=== PATIENT | female | born 1995 | race Two or more races ===

== ENCOUNTER 2024-06-07 13:51 | Inpatient (IN) | payer MEDICAID, OTHER ==
[~2024-06-07] VITALS: Ht 160 cm; Wt 90.0 kg
[2024-06-07 14:32] LABS: Basophils # (auto) 0.1 10 ^3/uL (0-0.2); Basophils % (auto) 0.9 % (0.0-2.0); Eosinophils # (auto) 0.1 10 ^3/uL (0-0.8); Hematocrit 18.4 % (36.0-46.0); Lymphocytes # (auto) 3.5 10 ^3/uL (0.4-5.4); Neutrophils # (auto) 10.5 10 ^3/uL (1.6-8.6); White Blood Cell 15.3 10^3/uL (4.4-10.8)
[2024-06-07 14:34] LABS: Eosinophils % (auto) 0.7 % (0.0-7.0); Mean Corpuscular Hemoglobin 14.4 pg (28.0-32.0); Mean Corpuscular Hgb Conc. 27.1 g/dL (32.0-36.0); Mean Corpuscular Volume 53.2 fL (80.0-100.0); Monocytes % (auto) 6.3 % (0.0-12.0); Neutrophils % (auto) 69.1 % (37.0-80.0); Nucleated Red Blood Cells % 0.1 %; Platelet Count (auto) 371 10^3/uL (140-450); Red Blood Cells 3.46 10^6/uL (4.0-5.20)
[2024-06-07 14:36] LABS: Red Cell Distribution Width 20.9 % (11.8-14.3)
[2024-06-07] MEDS: SODIUM CHLORIDE 0.9% 1,000 ML IV ONE ×3 (14:43→18:48)
[2024-06-07 14:53] LABS: Chloride 104 mmol/L (98-107); Potassium 4.4 mmol/L (3.5-5.1); Sodium 136 mmol/L (136-145)
[2024-06-07 14:54] LABS: Anion Gap 9 (5-15); Calcium 9.3 mg/dL (8.7-10.4); Carbon Dioxide 23 mmol/L (20-31)
--- NOTE | 2024-06-07 14:54 | ED.PDOC ---
History of Present Illness HPI Comments 29 y/o obese F presents with relative for syncope, today. Per relative, patient was attending a [facility] appointment when she, suddenly became pale and had a witnessed syncopal episode with fall at around 1330, this evening. At time of assessment, patient, now, only complains of a 3/10 and endorses on being sick prior with a cough and fever, lately. Patient has no reported trauma, injuries, incontinence, deficits, or other associated symptoms at this time. Chief Complaint: Dizziness Time Seen by MD: 13:55 Reviewed Notes: Nurses Notes, Medications, Allergies Allergies: Coded Allergies: NO KNOWN ALLERGIES (Unverified , 06/07/24) Information Source: Relative Mode of Arrival: Ambulatory Severity: Moderate Timing: Hours Duration: Since onset Prehospital treatment: None Past Medical History Past Medical History (Other): obese Surgical History: Denies all surgeries PRODUCE DEPARTMENT SUPERVISOR History: No Pertinent PRODUCE DEPARTMENT SUPERVISOR History Family History Family History: Unknown Social History Smoker: Non-Smoker Alcohol: Denies ETOH Use Drugs: Denies Drug Use Lives In: Home All Other Systems: Reviewed and Negative (Comprehensive systems review obtained and negative except for what is stated in the HPI.) Physical Exam General Appearance: Moderate Distress HEENT: Normal ENT Inspection, Pharynx Normal, TMs Normal Neck: Full Range of Motion, Non-Tender, Normal, Normal Inspection Respiratory: Chest Non-Tender, Lungs Clear, No Accessory Muscle Use, No Respiratory Distress, Normal Breath Sounds Cardiovascular: No Edema, No JVD, No Murmur, No Gallop, Normal Peripheral Pulses, Tachycardia Breast Exam: Deferred Gastrointestinal: No Organomegaly, Non Tender, No Pulsatile Mass, Normal Bowel Sounds, Soft Genitalia: Deferred Pelvic: Deferred Rectal: Deferred Extremities: No calf tenderness, Normal capillary refill, Normal inspection, Normal range of motion, Non-tender, No pedal edema Musculoskeletal : Apperance: Normal Neurologic: Alert, No Motor Deficits, No Sensory Deficits, Speech Problem (Old symptom) Cerebellar Function: NOT DONE Reflexes: NOT DONE Skin: Pallor Peripheral Pulses: 3+ Radial (R), 3+ Radial (L) Lymphatic: No Adenopathy Was a procedure done? Was a procedure done?: No Differential Dx Considerations may include: vasovagal response, dehydration, electrolyte imbalance, viral syndrome, URI, UTI, among others X-Ray, Labs, Meds, VS Vital Signs Date Time Temp Pulse Resp B/P (MAP) Pulse Ox O2 Delivery O2 Flow Rate FiO2 06/07/24 14:10 109 18 125/67 (86) 97 06/07/24 14:04 98.1 104 18 112/59 (76) 100 98.1 Lab Test 06/07/24 14:20 Range/Units White Blood Count 15.3 H 4.4-10.8 10^3/uL Red Blood Count 3.46 L 4.0-5.20 10^6/uL Hemoglobin 5.0 *L 12.2-16.2 g/dL Hematocrit 18.4 L 36.0-46.0 % Mean Corpuscular Volume 53.2 L 80.0-100.0 fL Mean Corpuscular Hemoglobin 14.4 L 28.0-32.0 pg Mean Corpuscular Hemoglobin Concent 27.1 L 32.0-36.0 g/dL Red Cell Distribution Width 20.9 H 11.8-14.3 % Platelet Count 371 140-450 10^3/uL Mean Platelet Volume 8.3 6.9-10.8 fL Neutrophils (%) (Auto) 69.1 37.0-80.0 % Lymphocytes (%) (Auto) 23.0 10.0-50.0 % Monocytes (%) (Auto) 6.3 0.0-12.0 % Eosinophils (%) (Auto) 0.7 0.0-7.0 % Basophils (%) (Auto) 0.9 0.0-2.0 % Neutrophils # (Auto) 10.5 H 1.6-8.6 10 ^3/uL Lymphocytes # (Auto) 3.5 0.4-5.4 10 ^3/uL Monocytes # (Auto) 1.0 0-1.3 10 ^3/uL Eosinophils # (Auto) 0.1 0-0.8 10 ^3/uL Basophils # (Auto) 0.1 0-0.2 10 ^3/uL Nucleated Red Blood Cells 0.1 % Sodium Level 136 136-145 mmol/L Potassium Level 4.4 3.5-5.1 mmol/L Chloride Level 104 98-107 mmol/L Carbon Dioxide Level 23 20-31 mmol/L Anion Gap 9 5-15 Blood Urea Nitrogen 9 9-23 mg/dL Creatinine 0.70 0.550-1.02 mg/dL Glomerular Filtration Rate Calc 119 >90 mL/min BUN/Creatinine Ratio 12.9 10.0-20.0 Serum Glucose 164 H 74-106 mg/dL Calcium Level 9.3 8.7-10.4 mg/dL Current Medications Medications (Trade) Dose Ordered Sig/Eulalia Route Start Time Stop Time Status Last Admin Sodium Chloride 1,000 ml @ 1,000 mls/hr Q1H ONCE IV 06/07/24 14:15 06/07/24 15:14 06/07/24 14:43 Patient alert. Problem with the speech. Possible MR. She is pale. Unable to express herself. No new symptom. Possible syncope. Possible anemia. Denies any bleeding. Establish intravenous access. Was given fluids. Hemoglobin is low. Blood transfusion. WBC elevated. Sepsis from unknown cause. Possible pneumonitis. Was given Rocephin. Was given azithromycin. Reviewed her history. Explained to the family. Continue monitoring. Time of 1ST Reevaluation: 14:25 Reevaluation 1ST: Unchanged Patient Education/Counseling: Diagnosis, Treatment Family Education/Counseling: Diagnosis, Treatment Additional Information Previous medical encounters reviewed: n/a The following tests were ordered, and results were reviewed by me: BMP, UA, CBC Additional Information was gathered from interviewing the following independent historians: family I reviewed and agreed with the following test results read by other providers: n/a I discussed treatment and results with medical personnel and: Patient Departure 1 Departure Time of Disposition: 15:04 Impression: Primary Impression: Sepsis, unspecified organism Qualified Codes: A41.9 - Sepsis, unspecified organism Additional Impression: Severe anemia Disposition: ADMITTED INPATIENT Admit to: Med Surg Condition: Guarded Critical Care Note Critical Care Time?: Yes (90 min-critical care time only) Critical care comment: Severe anemia pale anxious Stability Stability form required: No Heart Score Heart Score: Heart Score Response (Comments) Value History N/A 0 EKG N/A 0 Age N/A 0 Risk Factors N/A 0 Troponin N/A 0 Total 0 I personally scribed for ELLIS GELLER MD ([email or web address]) on 06/07/24 at 14:54. Electronically submitted by Enrrique Cardona ([email or web address]). ELLIS GELLER MD Jun 07, 2024 14:54
[2024-06-07 14:59] LABS: BUN/Creatinine Ratio 12.9 (10.0-20.0)
[2024-06-07 15:05] LABS: Blood Urea Nitrogen 9 mg/dL (9-23); Glucose 164 mg/dL (74-106)
--- NOTE | 2024-06-07 15:36 | DVH ---
EXAM: CT HEAD WITHOUT CONTRAST INDICATION: syncope TECHNIQUE: CT of the head without intravenous contrast. Radiation Dose Information: CT Dose: CTDI volume is 60.19 mGy. Dose-length product is 1186.14 mGy*cm The dose indicators for CT are the volume Computed Tomography (CT) Dose Index (CTDIvol) and the Dose Length Product (DLP), and are measured in units of mGy and mGy-cm, respectively. These indicators are not patient dose, but values generated from the CT scanner acquisition factors. The report includes radiation exposure data for exposures received during this examination. COMPARISON: None FINDINGS: There is no evidence of acute intracranial hemorrhage, extra-axial collection, mass effect, midline s hift, herniation or hydrocephalus. The ventricles, sulci and cisterns are age appropriate. The parker-white differentiation is intact. Patchy periventricular and subcortical white matter hypoattenuation is nonspecific but may be related to small vessel ischemic disease. The visualized paranasal sinuses and mastoid air cells are clear. The surrounding soft tissues and osseous structures are unremarkable. IMPRESSION: No acute intracranial abnormality. Diffuse cerebral atrophy with commensurate prominence of the ventricles and sulci
--- NOTE | 2024-06-07 15:38 | DVH ---
EXAM: XY CHEST PORTABLE Indication: sob Technique: Single frontal view of the chest was obtained Comparison: None FINDINGS: Lines and Tubes: None Lungs: No focal consolidation. Pleura: No effusion. No pneumothorax. Cardiomediastinal contours: Unremarkable Bones: No acute osseous abnormality. IMPRESSION: No acute cardiopulmonary disease.
[2024-06-07] MEDS: cefTRIAXone 1GM/50ML D5W 50 ML IV ONE (16:13)
[2024-06-07] MEDS: AZITHROMYCIN 500MG/ 250ML 250 ML IV ONE (17:10)
[2024-06-07 20:48] VITALS: PULSE 93; RESP 22; O2SAT 100
[2024-06-07 20:52] VITALS: BP 111/65; PULSE 105; RESP 17; TEMP 98.4
[2024-06-07 21:31] VITALS: BP 120/77; PULSE 100; RESP 16; TEMP 98.4
[2024-06-07 21:55] LABS: Urine Bacteria None Seen /hpf (None Seen)
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
[2024-06-07] MEDS ORDERED: ONDANSETRON HCL 4 MG/2 ML VIAL IV PRN (22:00)
[2024-06-07] MEDS ORDERED: MORPHINE SULFATE INJ 2 MG/ml SYRG IV PRN (22:00)
[2024-06-07 22:09] LABS: Urine Blood 2+ /uL (Negative); Urine Clarity Clear (Clear); Urine Color Colorless (Yellow); Urine Protein, UAD Negative (Negative); Urine Specific Gravity 1.008 (1.001-1.035); Urine Squamous Epithelial Cell FEW /hpf (<5); Urine Urobilinogen Normal (Negative)
[2024-06-07] MEDS: guaiFENesin-DM 100/10mg/5ml SYR PO ONE (22:15)
[2024-06-07] MEDS: SODIUM CHLORIDE 0.9% 1,000 ML IV SCH (22:15)
[2024-06-07] MEDS ORDERED: guaiFENesin-DM 100/10mg/5ml SYR PO PRN (22:15)
[2024-06-07 23:01] LABS: % Iron Saturation 2.3 % (15-50)
[2024-06-07 23:02] LABS: INR 1.08 (0.9-1.15); Partial Thromboplastin Time < 20.0 SEC (24.5-34.5); Prothrombin Time 11.4 sec (9.3-11.8)
[2024-06-07 23:09] LABS: Albumin 4.7 g/dL (3.2-4.8); Bilirubin, Direct 0.1 mg/dL (<0.3); Total Protein 7.6 g/dL (5.7-8.2)
[2024-06-07 23:10] LABS: Bilirubin, Total 0.4 mg/dL (0.2-1.0)
[2024-06-07 23:23] VITALS: BP 115/67; PULSE 99; RESP 26; TEMP 98.9
--- NOTE | 2024-06-07 23:27 | DVH ---
INDICATION: Metrorrhagia TECHNIQUE: Multiple real-time grayscale transabdominal sonographic images along with color and duplex Doppler of the uterus and ovaries were obtained. COMPARISON: None FINDINGS: Uterus is anteverted. Uterus measures 8.75 x 5.8 x 8.35 cm. Bladder is unremarkable. Left ovary measures 2.5 x 2 x 2.45 cm right ovary not seen. There is no flu id in the cul-de-sac. IMPRESSION: 1. Generally unremarkable study. I would recommended for this patient MRI examination of the pelvis zeus [email or web address] can not cooperate
[2024-06-07 23:46] VITALS: BP 116/65; PULSE 95; RESP 25; TEMP 98.9
[2024-06-07 23:58] LABS: Amphetamine Screen, Urine Neg (NEGATIVE); Barbiturate Scree,Urine Neg (NEGATIVE); Benzodiazephine Screen, Urine Neg (NEGATIVE); Cocaine Screen, Urine Neg (NEGATIVE); Opiate Scree,Urine Neg (NEGATIVE); Phencyclidine Screen, Urine Neg (NEGATIVE)
[2024-06-07 23:59] LABS: Cannabinoid Screen, Urine Neg (NEGATIVE)
[2024-06-08] VITALS (16 sets, daily range): BP systolic 110–137; BP diastolic 65–90; PULSE 76–96; RESP 16–26; TEMP 98–98.9; O2SAT 95–100
[2024-06-08] MEDS: PANTOPRAZOLE 40 MG/10 ML VIAL INJ IV ONE (01:43)
[2024-06-08] MEDS: AZITHROMYCIN 500MG/ 250ML 250 ML IV ONE (01:44)
[2024-06-08 01:53] LABS: Phosphorus 2.6 mg/dL (2.4-5.1)
[2024-06-08 05:45] LABS: Basophils # (auto) 0 10 ^3/uL (0-0.2); Basophils % (auto) 0.2 % (0.0-2.0); Eosinophils # (auto) 0.1 10 ^3/uL (0-0.8); Eosinophils % (auto) 0.9 % (0.0-7.0); Hematocrit 22.1 % (36.0-46.0); Lymphocytes # (auto) 5.1 10 ^3/uL (0.4-5.4); Lymphocytes % (auto) 35.4 % (10.0-50.0); Mean Corpuscular Hemoglobin 18.7 pg (28.0-32.0); Mean Corpuscular Volume 62.2 fL (80.0-100.0); Monocytes % (auto) 7.1 % (0.0-12.0); Neutrophils # (auto) 8.2 10 ^3/uL (1.6-8.6); Neutrophils % (auto) 56.4 % (37.0-80.0); Nucleated Red Blood Cells % 0.1 %; Platelet Count (auto) 286 10^3/uL (140-450); Red Blood Cells 3.55 10^6/uL (4.0-5.20); White Blood Cell 14.5 10^3/uL (4.4-10.8)
[2024-06-08 05:49] LABS: Hemoglobin 6.6 g/dL (12.2-16.2)
[2024-06-08 06:18] LABS: Alanine Aminotransferase 11 U/L (7-40); Albumin 4.1 g/dL (3.2-4.8); Alkaline Phosphatase 53 U/L (46-116); Anion Gap 9 (5-15); BUN/Creatinine Ratio 9.2 (10.0-20.0); Calcium 8.8 mg/dL (8.7-10.4); Carbon Dioxide 21 mmol/L (20-31); Potassium 3.7 mmol/L (3.5-5.1); Sodium 138 mmol/L (136-145); Total Protein 6.9 g/dL (5.7-8.2)
[2024-06-08 06:19] LABS: Aspartate Aminotransferase 13 U/L (13-40); Bilirubin, Total 0.9 mg/dL (0.2-1.0); Blood Urea Nitrogen 6 mg/dL (9-23); Chloride 108 mmol/L (98-107); Glucose 122 mg/dL (74-106)
[2024-06-08] MEDS: IPRATROPIUM BROM 0.5 MG/2.5ML INH SOL NEB SCH (06:57)
[2024-06-08] MEDS: ALBUTEROL SULF 2.5 MG/0.5ML(0.5%) NEB SOLN NEB SCH (06:57)
[2024-06-08 07:01] LABS: Hypochromia Moderate; Ovalocytes FEW
[2024-06-08 07:02] LABS: Anisocytosis Slight; Platelet Estimate Adequate
--- NOTE | 2024-06-08 08:20 | DVH ---
CHEST RADIOGRAPH Indication: Cough, history of positive PPD Technique: Frontal and lateral view of the chest was obtained Comparison: None FINDINGS: Lines and Tubes: None Lungs: Increased interstitial prominence. Pleura: No effusion. No pneumothorax. Cardiomediastinal contours: Unremarkable Bones: Unremarkable IMPRESSION: Pulmonary vascular congestion or viral pneumonia. No findings to suggest active TB.
[2024-06-08] MEDS: cefTRIAXone 1GM/50ML D5W 50 ML IV SCH (09:54)
[2024-06-08] MEDS: PANTOPRAZOLE 40 MG/10 ML VIAL INJ IV SCH (09:54)
[2024-06-08] MEDS: AZITHROMYCIN 500MG/ 250ML 250 ML IV SCH (10:09)
[2024-06-08] MEDS ORDERED: BENZ100C97 PO (12:08)
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
[2024-06-08] MEDS: LORazepam 2MG/ML-1ML VIAL IV ONE (13:47)
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
[2024-06-08] MEDS: EZ PAQUE SUSP 12OZ BTL ONE (14:08)
[2024-06-08] MEDS: GADOTERATE MEG 10 MMOL/20ml INJ (0.5MMOL/ml) IV ONE (14:08)
[2024-06-08] MEDS: IRON SUCROSE COMPLEX 110 ML IV SCH (15:06)
[2024-06-08] MEDS: ERGOCALCIFEROL 50,000 UNIT(1.25MG) CAP PO SCH (17:17)
--- NOTE | 2024-06-08 17:25 | DVH ---
CLINICAL HISTORY: F/U FROM ULTRASOUND TECHNIQUE: Utilizing a scanner, MRI of the pelvis was performed with and without intravenous contras t. ml of was administered intravenously. 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 Bladder is unremarkable bones are normal. 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 IMPRESSION: 1. 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
[2024-06-08 20:19] LABS: Hematocrit 28.1 % (36.0-46.0); Hemoglobin 8.1 g/dL (12.2-16.2)
[2024-06-09] VITALS (10 sets, daily range): BP systolic 112–143; BP diastolic 62–77; PULSE 73–107; RESP 16–20; TEMP 98–99.1; O2SAT 96–100
[2024-06-09 11:22] LABS: Basophils # (auto) 0.1 10 ^3/uL (0-0.2); Hemoglobin 8.3 g/dL (12.2-16.2); White Blood Cell 14.3 10^3/uL (4.4-10.8)
[2024-06-09 11:24] LABS: Basophils % (auto) 0.6 % (0.0-2.0); Eosinophils # (auto) 0.1 10 ^3/uL (0-0.8); Hematocrit 28.3 % (36.0-46.0); Lymphocytes # (auto) 3.9 10 ^3/uL (0.4-5.4); Mean Corpuscular Hemoglobin 19.2 pg (28.0-32.0); Mean Corpuscular Hgb Conc. 29.3 g/dL (32.0-36.0); Mean Corpuscular Volume 65.5 fL (80.0-100.0); Monocytes % (auto) 7.3 % (0.0-12.0); Neutrophils # (auto) 9.1 10 ^3/uL (1.6-8.6); Neutrophils % (auto) 64.1 % (37.0-80.0); Nucleated Red Blood Cells % 0.3 %; Platelet Count (auto) 304 10^3/uL (140-450); Red Blood Cells 4.32 10^6/uL (4.0-5.20); Red Cell Distribution Width 33.9 % (11.8-14.3)
[2024-06-09 11:46] LABS: Chloride 106 mmol/L (98-107); Potassium 3.9 mmol/L (3.5-5.1); Sodium 137 mmol/L (136-145)
[2024-06-09 11:47] LABS: Anion Gap 9 (5-15); Calcium 9.7 mg/dL (8.7-10.4); Carbon Dioxide 22 mmol/L (20-31)
[2024-06-09 11:52] LABS: Glucose 102 mg/dL (74-106)
[2024-06-09 11:53] LABS: BUN/Creatinine Ratio 7.9 (10.0-20.0); Blood Urea Nitrogen < 5 mg/dL (9-23)
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
[2024-06-10] VITALS (7 sets, daily range): BP systolic 114–134; BP diastolic 55–84; PULSE 69–101; RESP 17–19; TEMP 97.3–98.3; O2SAT 98–100
[2024-06-10 05:11] LABS: Basophils # (auto) 0.1 10 ^3/uL (0-0.2); Basophils % (auto) 0.4 % (0.0-2.0); Hemoglobin 7.8 g/dL (12.2-16.2); Neutrophils # (auto) 8.1 10 ^3/uL (1.6-8.6)
[2024-06-10 05:15] LABS: Eosinophils # (auto) 0.2 10 ^3/uL (0-0.8); Eosinophils % (auto) 1.8 % (0.0-7.0); Hematocrit 25.9 % (36.0-46.0); Lymphocytes % (auto) 30.2 % (10.0-50.0); Mean Corpuscular Hemoglobin 19.5 pg (28.0-32.0); Mean Corpuscular Hgb Conc. 30.1 g/dL (32.0-36.0); Mean Corpuscular Volume 64.7 fL (80.0-100.0); Monocytes % (auto) 7.2 % (0.0-12.0); Neutrophils % (auto) 60.4 % (37.0-80.0); Nucleated Red Blood Cells % 0.1 %; Platelet Count (auto) 286 10^3/uL (140-450); White Blood Cell 13.4 10^3/uL (4.4-10.8)
[2024-06-10 05:18] LABS: Chloride 106 mmol/L (98-107); Sodium 139 mmol/L (136-145)
[2024-06-10 05:19] LABS: Anion Gap 11 (5-15); Calcium 9.2 mg/dL (8.7-10.4); Carbon Dioxide 22 mmol/L (20-31)
[2024-06-10 05:24] LABS: BUN/Creatinine Ratio 8.9 (10.0-20.0); Blood Urea Nitrogen < 5 mg/dL (9-23); Glucose 98 mg/dL (74-106)
[2024-06-10 05:29] LABS: Red Cell Distribution Width 34.4 % (11.8-14.3)
[2024-06-10 06:57] LABS: Anisocytosis Moderate; Hypochromia Moderate; Platelet Estimate Adequate; Polychromasia Slight
[2024-06-10] MEDS ORDERED: LEVO500T91 PO (10:29)
[2024-06-10] MEDS ORDERED: FERR1TAB28 PO (10:29)
[2024-06-10] MEDS: IRON SUCROSE COMPLEX 110 ML IV SCH (12:00)
--- NOTE | 2024-06-10 14:31 | DVHSR ---
APPROVED REPORT EXAM: Two-dimensional and M-mode echocardiogram with Doppler and color Doppler. Blood Pressure: 114/69 mmHg INDICATION Rule out structural abnormality RISK FACTORS Obesity: Height: 5'3", Weight: 198 DIMENSIONS LVDd4.8 (3.8-5.7cm)LA (2D)4.3 (1.9-4.0cm)Aortic Root3.6 (2.0-3.7cm) LVDs3.5 (2.5-4.0cm)LA (MM) (1.9-4.0cm)Aortic Cusp Exc1.9 (1.5-2.0cm) EF (%) 54.0 (55-70%)Rt. Atrium3.8 (1.9-4.0cm)Asc. Aorta cm IVSd1.0 (0.7-1.1cm)RV (D) (1.8-2.4cm) PWd1.0 (0.7-1.1cm) Mitral Valve MitralMitral Stenosis E wave0.92m/sMV Mean GR.mmHg A wave0.63m/sMV Peak GR.mmHg E/A ratio1.52D MVAcm2 DECEL [id number] 1/2 Timems Aortic Valve Aortic ValveAortic Stenosis V10.81m/Shay Mean GR.2mmHg V21.06m/Shay Peak GR.5mmHg LVOT Diameter2.2 (1.8-2.4cm)Doppler AVA2.90cm2 Pulmonic Valve V20.94m/s Tricuspid Valve TR Velocity2.47m/s [id number] Other Information Technically limited study due to body habitus. Conclusion lvef 65% by visual estimate normal rv function leftl atria enlarged no severe valve abnormalities noted mild mitral regurg
--- NOTE | 2024-06-10 16:52 | DVHDS2 ---
Discharge Summary Date of Admission Jun 07, 2024 at 21:57 Date of Discharge: Jun 10, 2024 Labs/Diagnostic Data: Laboratory Results Test 06/10/24 04:45 06/08/24 05:30 06/08/24 05:15 06/07/24 22:27 White Blood Count 13.4 10^3/uL (4.4-10.8) Red Blood Count 4.00 10^6/uL (4.0-5.20) Hemoglobin 7.8 g/dL (12.2-16.2) Hematocrit 25.9 % (36.0-46.0) Mean Corpuscular Volume 64.7 fL (80.0-100.0) Mean Corpuscular Hemoglobin 19.5 pg (28.0-32.0) Mean Corpuscular Hemoglobin Concent 30.1 g/dL (32.0-36.0) Red Cell Distribution Width 34.4 % (11.8-14.3) Platelet Count 286 10^3/uL (140-450) Mean Platelet Volume 8.3 fL (6.9-10.8) Neutrophils (%) (Auto) 60.4 % (37.0-80.0) Lymphocytes (%) (Auto) 30.2 % (10.0-50.0) Monocytes (%) (Auto) 7.2 % (0.0-12.0) Eosinophils (%) (Auto) 1.8 % (0.0-7.0) Basophils (%) (Auto) 0.4 % (0.0-2.0) Neutrophils # (Auto) 8.1 10 ^3/uL (1.6-8.6) Lymphocytes # (Auto) 4.0 10 ^3/uL (0.4-5.4) Monocytes # (Auto) 1.0 10 ^3/uL (0-1.3) Eosinophils # (Auto) 0.2 10 ^3/uL (0-0.8) Basophils # (Auto) 0.1 10 ^3/uL (0-0.2) Nucleated Red Blood Cells 0.1 % Platelet Estimate Adequate Polychromasia Slight Hypochromasia (manual) Moderate Anisocytosis (manual) Moderate Microcytosis Moderate Sodium Level 139 mmol/L (136-145) Potassium Level 4.0 mmol/L (3.5-5.1) Chloride Level 106 mmol/L (98-107) Carbon Dioxide Level 22 mmol/L (20-31) Anion Gap 11 (5-15) Blood Urea Nitrogen < 5 mg/dL (9-23) Creatinine 0.56 mg/dL (0.550-1.02) Glomerular Filtration Rate Calc 126 mL/min (>90) BUN/Creatinine Ratio 8.9 (10.0-20.0) Serum Glucose 98 mg/dL (74-106) Calcium Level 9.2 mg/dL (8.7-10.4) Stool Occult Blood Positive (Negative) Stool Occult Blood Sample #3 (Negative) Ovalocytes Few Hemoglobin A1c < 3.8 % A1C (<5.7) Lactic Acid Level 1.4 mmol/L (0.4-2.0) Ferritin 1.5 ng/mL (10-291) Total Bilirubin 0.9 mg/dL (0.2-1.0) Aspartate Amino Transferase (AST) 13 U/L (13-40) Alanine Aminotransferase (ALT) 11 U/L (7-40) Alkaline Phosphatase 53 U/L (46-116) Total Protein 6.9 g/dL (5.7-8.2) Albumin 4.1 g/dL (3.2-4.8) Vitamin B12 Level 600 pg/mL (211-911) Vitamin D 25-Hydroxy 15.0 ng/mL (30.0-100) Haptoglobin 148 mg/dL (33-278) Prothrombin Time 11.4 sec (9.3-11.8) Prothrombin Time INR 1.08 (0.9-1.15) Activated Partial Thromboplast Time < 20.0 SEC (24.5-34.5) Iron Level 10 ug/dL (50-170) Total Iron Binding Capacity 430 ug/dL (250-425) Percent Iron Saturation 2.3 % (15-50) Direct Bilirubin 0.1 mg/dL (<0.3) Folic Acid 20.80 ng/mL (>5.38) Test 06/07/24 21:54 06/07/24 14:20 Urine Color Colorless (Yellow) Urine Clarity Clear (Clear) Urine pH 6.0 (5.0-9.0) Urine Specific Mandan 1.008 (1.001-1.035) Urine Protein Negative (Negative) Urine Ketones Negative (Negative) Urine Blood 2+ /uL (Negative) Urine Nitrite Negative (Negative) Urine Bilirubin Negative (Negative) Urine Urobilinogen Normal mg/dL (Negative) Urine Leukocyte Esterase Negative /uL (Negative) Urine RBC 4 /hpf (0 - 4) Urine Microscopic WBC /HPF (0-5) Urine Squamous Epithelial Cells Few /hpf (<5) Urine Bacteria None seen /hpf (None Seen) Urine Glucose Normal mg/dL (Normal) Urine Test Negative (Negative) Urine Opiates Screen Neg (NEGATIVE) Urine Fentanyl Screen Neg (NEGATIVE) Urine Barbiturates Screen Neg (NEGATIVE) Urine Phencyclidine Screen Neg (NEGATIVE) Urine Amphetamines Screen Neg (NEGATIVE) Urine Benzodiazepines Screen Neg (NEGATIVE) Urine Cocaine Screen Neg (NEGATIVE) Urine Cannabinoids Screen Neg (NEGATIVE) Reticulocyte Count (auto) 3.79 % (0.5-1.5) Phosphorus Level 2.6 mg/dL (2.4-5.1) Magnesium Level 2.0 mg/dL (1.6-2.6) Triglycerides Level 137 mg/dL (< 150) Cholesterol Level 153 mg/dL (< 200) LDL Cholesterol 104 mg/dL (< 100) HDL Cholesterol 34 mg/dL (40-59) Thyroid Stimulating Hormone (TSH) 1.63 uIU/mL (0.55-4.78) Other Laboratory Tests 06/10/24 04:45 Brief Hx & Hospital Course: Patient is a a 28-year-old female with delayed speech was brought to the ED by her mother due to episode of loss of consciousness which lasted approximately 15 minute. According to the mother, when she woke up if she was obtunded and presented generalized tremors and increased tonicity more evident in her upper limbs, prodromes of palpitations. During the episode patient was sitting down and getting a manicure. Patient is a poor historian due to developmental delay. Per mother who was at bedside she has been presenting menorrhagia for the past four months, normally uses a proximally two pads a day. She also has been presenting flu-like symptoms in the past week (chills, nasal congestion, nonproductive cough). Mother mentions that she was supposed to go to board and care in completed PPD which was positive with a posterior chest x-ray which was within normal limits. follow up [facility] outpatient, grossly normal. received transfusion and iv iron. 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 Patient was counseled about treatment plan, medications, possible side effects, patientverbalized understanding. All questions were answered to the best of my ability. This discharge took greater then 30 minutes in planning, reviewing documentation, counseling the patient, and discussing with other team members." ASSESSMENT ASSESSMENT Assessment Severe anemia with requirement of transfusion secondary to metrorrhagia Iron deficiency anemia Metrorrhagia Sepsis probably secondary to pneumonia pneumonia ? GI bleed Questionable syncope Obesity grade II Date of Service: Jun 10, 2024 Billing Provider: EMELI EWING MD Common Visit Codes: [id number] DISCH DAY >30min EMELI EWING MD Jun 10, 2024 16:52
[2024-06-11] MEDS ORDERED: POLY335015 PO (21:45)
[2024-06-11] MEDS ORDERED: ACET650T12 PO (21:45)
== END 2024-06-10 14:47 | disposition home or self-care (01) | DRG 720 ==
LOC: EDBD 13:56 → ER 13:56 → OVERFLOW 21:57 → TELE-WESTW 06-08 09:31
PROVIDERS: ADMIT Student in an Organized Health Care Education/Training Program; ATTEND Student in an Organized Health Care Education/Training Program
PROC: 30233N1 Transfusion of Nonautologous Red Blood Cells into Peripheral Vein, Percutaneous Approach (ICD-10-PCS; principal; 2024-06-07)
DX: A41.59 Other Gram-negative sepsis (principal); J15.69 Pneumonia due to other Gram-negative bacteria; R56.9 Unspecified convulsions; J15.9 Unspecified bacterial pneumonia; N92.0 Excessive and frequent menstruation with regular cycle; D50.9 Iron deficiency anemia, unspecified; E66.9 Obesity, unspecified; Z68.35 Body mass index [BMI] 35.0-35.9, adult; F80.9 Developmental disorder of speech and language, unspecified; Z86.61 Personal history of infections of the central nervous system; Z91.410 Personal history of adult physical and sexual abuse; Z79.899 Other long term (current) drug therapy
CPT/HCPCS: 36415; 70450; 71045; 71046; 73723; 76856; 80048; 80053; 80061; 80076; 80307; 81001; 81025; 82270; 82306; 82607; 82728; 82746; 83010; 83036; 83540; 83550; 83605; 83735; 84100; 84443; 85014; 85018; 85025; 85045; 85610; 85730; 86850; 86880; 86900; 86901; 86920; 87040; 87070; 87086; 87205; 93306; 94640; 96365; 96366; 96367; 99291; 99292; G0378; J1756; J2470

== ENCOUNTER 2024-06-11 18:16 | Emergency (ER) | payer MEDICAID ==
[~2024-06-11] VITALS: Ht 162.6 cm; Wt 89.4 kg
[~2024-06-11 18:16] MED LIST: BENZ100C97 PO; FERR1TAB28 PO; LEVO500T91 PO
--- NOTE | 2024-06-11 18:52 | ED.PDOC ---
GI ASSESSMENT HPI Comments 28-year-old female brought in by mother presents with a chief complaint of abdominal pain x onset this morning. Patient states that her pain is localized to her LLQ, nonradiating, describes as cramps, and rates her pain a 7/10. Patient has increased passing of gas (flatulence/burping). Patient was just discharged from this facility yesterday after blood transfusion and was prescribed Levaquin and iron. No other symptoms or modifying factors present at this time. History taken from mother, patient has a history of developmental delay. Chief Complaint: Abdominal Pain Time Seen by MD: 18:30 Primary Care Provider: Chun Reviewed Notes: Medications, Allergies Allergies: Coded Allergies: NO KNOWN ALLERGIES (Unverified , 06/07/24) Home Meds Active Scripts Levofloxacin Hemihydrate (LEVOFLOXACIN) 500 Mg Tab, 1 TAB PO DAILY for 7 Days, #7 TAB Prov:EMELI EWING MD 06/10/24 Ferrous Sulfate (Iron High-Potency) 325 Mg Tab, 325 MG PO MWF for 56 Days, #24 TAB Prov:EMELI EWING MD 06/10/24 Reported Medications Benzonatate (Benzonatate) 100 Mg Cap, 1 CAP PO TID PRN for cough 06/08/24 Information Source: Patient Mode of Arrival: Ambulatory Timing: Hours Duration: Since onset Prehospital treatment: None Quality: Cramping Vomitus: None Stool: Normal Severity: Moderate Recent: None Recent Hx of: None Pain Location: LLQ Associated sign and symptoms: Abdominal Pain Vital Signs Vital Signs Date Time Temp Pulse Resp B/P (MAP) Pulse Ox O2 Delivery O2 Flow Rate FiO2 06/11/24 18:25 98.6 100 20 138/77 (97) 97 98.6 Physical Exam General: Awake, alert and oriented. No acute distress. Skin: Skin in warm, dry and intact. Appropriate color for ethnicity. HEENT: The head is normocephalic and atraumatic. Conjunctivae are clear without exudates or hemorrhage. Sclera is non-icteric. EOM are intact. No signs of nystagmus. Eyelids are normal in appearance without swelling or lesions. Oral mucosa is pink and moist Neck: The neck is supple with normal range of motion. No JVD. Cardiac: Heart rate and rhythm are normal. No murmurs, gallops, or rubs are auscultated. Respiratory: No signs of respiratory distress. Lung sounds are clear in all lobes bilaterally without rales, rhonchi, or wheezes. Abdominal: Abdomen is soft, without distention, without guarding. Patient is shows grimace with even light palpation by hand anywhere on the abdomen, however no grimace with pressing stethoscope against abdomen with light or deep palpation in all 4 quadrants. Bowel sounds are present and normoactive in all four quadrants. Extremities: Upper and lower extremities are atraumatic in appearance without deformity or edema. Neurological: The patient is awake, alert There is no facial asymmetry. Normal gait Past Medical History Past Medical History (Other): Developmental Delay Surgical History: Denies all surgeries CARPENTER INSPECTOR History: No Pertinent CARPENTER INSPECTOR History Family History Family History: Unknown Social History Smoker: Non-Smoker Alcohol: Denies ETOH Use Drugs: Denies Drug Use Lives In: Home Was a procedure done? Was a procedure done?: No GI differential Dx Differential Diagnosis: Other Other Differential Diagnosis Differential diagnoses considered include: Abdominal aortic aneurysm, OH, esophageal rupture, intestinal obstruction, mesenteric ischemia, perforated viscus or solid organ rupture, CHF with hepatomegaly, pneumonia, abscess, appendicitis, biliary disease, diverticulitis, gastritis, gastroenteritis, hepatitis, hernia, inflammatory bowel disease, pancreatitis, peptic ulcer disease, urinary tract infection, ureteral colic, constipation, GERD, irritable syndrome, abdominal wall pain, nonspecific abdominal pain, herpes zoster. Also ruptured ectopic , ovarian torsion/cyst, tubo-ovarian abscess, PID, endometriosis, mittleschmerz. X-Ray, Labs, Meds, VS Vital Signs Date Time Temp Pulse Resp B/P (MAP) Pulse Ox O2 Delivery O2 Flow Rate FiO2 06/11/24 18:25 98.6 100 20 138/77 (97) 97 98.6 Lab Test 06/11/24 19:21 06/11/24 19:13 Range/Units Urine Color Colorless Yellow Urine Clarity Clear Clear Urine pH 6.0 5.0-9.0 Urine Specific [place] 1.009 1.001-1.035 Urine Protein Negative Negative Urine Ketones Negative Negative Urine Blood Trace H Negative /uL Urine Nitrite Negative Negative Urine Bilirubin Negative Negative Urine Urobilinogen Normal Negative mg/dL Urine Leukocyte Esterase Negative Negative /uL Urine RBC 3 0 - 4 /hpf Urine Microscopic WBC < 1 0-5 /HPF Urine Squamous Epithelial Cells Few <5 /hpf Urine Bacteria None seen None Seen /hpf Urine Yeast (Budding) Occasional None Seen /hpf Urine Glucose Normal Normal mg/dL Urine Test Negative Negative White Blood Count 15.6 H 4.4-10.8 10^3/uL Red Blood Count 4.80 4.0-5.20 10^6/uL Hemoglobin 9.6 #L 12.2-16.2 g/dL Hematocrit 33.5 #L 36.0-46.0 % Mean Corpuscular Volume 69.9 #L 80.0-100.0 fL Mean Corpuscular Hemoglobin 20.0 L 28.0-32.0 pg Mean Corpuscular Hemoglobin Concent 28.6 L 32.0-36.0 g/dL Red Cell Distribution Width 34.8 H 11.8-14.3 % Platelet Count 338 140-450 10^3/uL Mean Platelet Volume 8.2 6.9-10.8 fL Neutrophils (%) (Auto) 67.0 37.0-80.0 % Lymphocytes (%) (Auto) 25.0 10.0-50.0 % Monocytes (%) (Auto) 6.1 0.0-12.0 % Eosinophils (%) (Auto) 1.1 0.0-7.0 % Basophils (%) (Auto) 0.8 0.0-2.0 % Neutrophils # (Auto) 10.5 H 1.6-8.6 10 ^3/uL Lymphocytes # (Auto) 3.9 0.4-5.4 10 ^3/uL Monocytes # (Auto) 0.9 0-1.3 10 ^3/uL Eosinophils # (Auto) 0.2 0-0.8 10 ^3/uL Basophils # (Auto) 0.1 0-0.2 10 ^3/uL Nucleated Red Blood Cells 0.0 % Platelet Estimate Adequate Large Platelets Few Hypochromasia (manual) Marked Anisocytosis (manual) Marked Microcytosis Moderate Tear Drop Cells Few Sodium Level 136 136-145 mmol/L Potassium Level 4.0 3.5-5.1 mmol/L Chloride Level 105 98-107 mmol/L Carbon Dioxide Level 21 20-31 mmol/L Anion Gap 10 5-15 Blood Urea Nitrogen 8 L 9-23 mg/dL Creatinine 0.65 0.550-1.02 mg/dL Glomerular Filtration Rate Calc 121 >90 mL/min BUN/Creatinine Ratio 12.3 10.0-20.0 Serum Glucose 110 H 74-106 mg/dL Lactic Acid Level 1.1 0.4-2.0 mmol/L Calcium Level 9.9 8.7-10.4 mg/dL Total Bilirubin 0.5 0.2-1.0 mg/dL Aspartate Amino Transferase (AST) 18 13-40 U/L Alanine Aminotransferase (ALT) 12 7-40 U/L Alkaline Phosphatase 67 46-116 U/L Total Protein 8.2 5.7-8.2 g/dL Albumin 4.9 H 3.2-4.8 g/dL Lipase 63 H 12-53 U/L Time of 1ST Reevaluation: 19:00 Reevaluation 1ST: Unchanged Patient Education/Counseling: Other Family Education/Counseling: Need For Follow Up Departure 1 Departure Time of Disposition: 21:42 Impression: Primary Impression: Abdominal pain Additional Impressions: Leukocytosis Constipation Disposition: 01 HOME / SELF CARE / HOMELESS Condition: Stable Additional Instructions: [employer] [place] [employer] Urgencias Instrucciones: Clementina atentamente todas las instrucciones proporcionadas en yulissa paquete. Contine con los antibiticos segn lo prescrito previamente. Comience a cricket medicamentos para el estreimiento. Regrese a urgencias si Anika persiste con dolor abdominal en 12 a 24 horas. Aunque le hayan dado el barrington del Departamento de Emergencias, esto no significa que tenga un "certificado de buena clara". Hoy no se thomas realizado ningn diagnstico definitivo para eduardo sntomas. Es posible que ests en proceso de desarrollar lucio enfermedad grave. Es por eso que debe regresar al servicio de urgencias sin falta si presenta algn sntoma nuevo o que empeora (especialmente si eduardo sntomas incluyen dolor en el pecho, dificultad para respirar, dolor abdominal, fiebre, dolor de kari, confusin, dificultad para pranav o caminar). Tambin es muy importante que consulte a un mdico de atencin primaria dentro de los prximos 3 a 5 trinidad para realizar un seguimiento. Si no puede conseguir lucio beatriz, regrese al servicio de urgencias para lucio nueva evaluacin. Dolor abdominal: instrucciones de cuidado Imagen de los cuatro cuadrantes del abdomen. Descripcin general El dolor abdominal tiene muchas causas posibles. Algunas no son graves y mejoran por s solas en unos trinidad. Otras requieren ms pruebas y tratamiento. Si el dolor contina o empeora, es necesario volver a examinarlo y es posible que necesite ms pruebas para averiguar qu es lo que est mal. Es posible que necesite lucio ciruga para corregir el problema. No ignore los sntomas nuevos, mami fiebre, nuseas y vmitos, problemas para orinar, dolor que empeora y mareos. Estos pueden ser signos de un problema ms grave. Si no mejora, es posible que necesite ms pruebas o tratamiento. El mdico lo thomas examinado cuidadosamente, lisa pueden surgir problemas ms adelante. Si nota algn problema o sntomas nuevos, busque tratamiento mdico de inmediato . El seguimiento mdico es lucio parte fundamental de craig tratamiento y craig seguridad. Asegrese de programar y acudir a todas las citas, y llame a craig mdico si tiene problemas. Tambin es lucio buena idea saber los resultados de eduardo pruebas y llevar ulcio lista de los medicamentos que reina. Repeat Chief puedes cuidarte en casa? Descansa hasta que te sientas mejor. Para prevenir la deshidratacin, thu abundante lquido. Elija agua y otros lquidos ciara hasta que se sienta mejor. Si tiene lucio enfermedad renal, cardaca o heptica y debe limitar los lquidos, consulte con craig mdico antes de aumentar la cantidad de lquidos que papo. Cuando sientas ganas de comer, empieza con pequeas cantidades. No tomes alcohol, cafena ni alimentos picantes, calientes o con alto contenido de grasa zahra bam o dos trinidad. Evite los medicamentos antiinflamatorios mami la aspirina, el ibuprofeno (Advil, Motrin) y el naproxeno (Aleve). Pueden causar malestar estomacal. Hable con craig mdico si reina aspirina a diario por otro problema de clara. Cundo debes pedir ayuda? Llame al 911 en cualquier momento en que crea que puede necesitar atencin de emergencia. Por ejemplo, llame si: Te desmayaste (perdiste el conocimiento). Tiene heces de color marrn o con katy ceirra. Vomitas cierra o lo que parecen posos de caf. Tienes un dolor intenso en el vientre. Llame a craig mdico ahora o busque atencin mdica inmediata si: El dolor empeora, especialmente si se concentra en lucio colton determinada del abdomen. Tiene fiebre nueva o ms bar[place]. Las heces son negras y parecen alquitrn, o tienen vetas de cierra. Tienes sangrado vaginal inesperado. Tiene sntomas de lucio infeccin del tracto urinario. Estos pueden incluir: Dolor al orinar. Orinar con ms frecuencia de lo habitual. Cierra en la orina. Se siente mareado o aturdido, o siente que se puede desmayar. Preste atencin a los cambios en craig clara y asegrese de comunicarse con craig mdico si: No ests mejorando mami esperabas. Crditos para el dolor abdominal: instrucciones de cuidado Actualizado al: 2023 Autor: Personal de [employer] e-Prescriptions Acetaminophen (Acetaminophen Er) 650 Mg Tab 650 MG PO TIDPRN PRN for 5 Days, #15 TAB Prov: ARMANDO DIAZ MD 06/11/24 Polyethylene Glycol 3350 (Miralax) 17 Gm Pow 17 GM PO DAILY for 7 Days, #7 POW Prov: ARMANDO DIAZ MD 06/11/24 Comments 28-year-old female presented with frequent, intermittent abdominal pain. No peritoneal signs on abdominal exam. No evidence of acute abdomen at this time. patient is well appearing. Labs show shows persistent leukocytosis seen during previous admission.. Patient is currently on antibiotics. Imaging his large stool burden in colon. Patient is afebrile. Patient is not hypotensive. Low suspicion for acute hepatobiliary disease (including acute cholecystitis, acute pancreatitis, PUD (including perforation), acute infectious process (pneumonia, hepatitis, pyelonephritis), acute appendicitis, vascular catastrophe, bowel obstructions, viscous perforation. Presentation not consistent with other acute, emergent causes of abdominal pain at this time. Patient well-appearing, nontoxic. Advised prompt follow-up with PCP, return to the ED with any new, worsening or concerning symptoms. ----- I reviewed the following notes from the pt's past medical encounters: Admission for this month for anemia, blood transfusion The following tests were ordered, and results were reviewed by me: (See diagnostic results section) The following test were independently interpreted by me: N/A Additional information was gathered from interviewing the following independent historians: (N/A) I reviewed and agreed with the following test results read by other providers: N/A I discussed treatments and results with medical personnel and mother Decision regarding hospitalization or escalation of hospital level of care: Risks and benefits of admission for further treatment of patient's condition was considered however due to patient's stable condition patient will be discharged to follow up closely or return to care for worsening of condition or inability to follow up. Critical Care Note Critical Care Time?: No Stability Stability form required: No Heart Score Heart Score: Heart Score Response (Comments) Value History N/A 0 EKG N/A 0 Age N/A 0 Risk Factors N/A 0 Troponin N/A 0 Total 0 I personally scribed for ARMANDO DIAZ MD ([email or web address]) on 06/11/24 at 18:52. Electronically submitted by Dave May ([email or web address]). ARAMNDO DIAZ MD Jun 11, 2024 18:52
[2024-06-11 19:38] LABS: Urine Bacteria None Seen /hpf (None Seen)
[2024-06-11 19:54] LABS: Basophils # (auto) 0.1 10 ^3/uL (0-0.2); Eosinophils # (auto) 0.2 10 ^3/uL (0-0.8); Hemoglobin 9.6 g/dL (12.2-16.2); Monocytes # (auto) 0.9 10 ^3/uL (0-1.3)
[2024-06-11 19:56] LABS: Basophils % (auto) 0.8 % (0.0-2.0); Eosinophils % (auto) 1.1 % (0.0-7.0); Hematocrit 33.5 % (36.0-46.0); Lymphocytes # (auto) 3.9 10 ^3/uL (0.4-5.4); Mean Corpuscular Hgb Conc. 28.6 g/dL (32.0-36.0); Mean Corpuscular Volume 69.9 fL (80.0-100.0); Monocytes % (auto) 6.1 % (0.0-12.0); Neutrophils # (auto) 10.5 10 ^3/uL (1.6-8.6); Platelet Count (auto) 338 10^3/uL (140-450); White Blood Cell 15.6 10^3/uL (4.4-10.8)
[2024-06-11 20:04] LABS: Red Cell Distribution Width 34.8 % (11.8-14.3)
[2024-06-11 20:11] LABS: Alanine Aminotransferase 12 U/L (7-40); Alkaline Phosphatase 67 U/L (46-116); Anion Gap 10 (5-15); Aspartate Aminotransferase 18 U/L (13-40); BUN/Creatinine Ratio 12.3 (10.0-20.0); Bilirubin, Total 0.5 mg/dL (0.2-1.0); Calcium 9.9 mg/dL (8.7-10.4); Carbon Dioxide 21 mmol/L (20-31); Chloride 105 mmol/L (98-107); Sodium 136 mmol/L (136-145)
[2024-06-11 20:11] LABS: Urine Blood TRACE /uL (Negative); Urine Budding Yeast OCCASIONAL /hpf (None Seen); Urine Clarity Clear (Clear); Urine Color Colorless (Yellow); Urine Protein, UAD Negative (Negative); Urine Specific Gravity 1.009 (1.001-1.035); Urine Squamous Epithelial Cell FEW /hpf (<5); Urine Urobilinogen Normal (Negative); Urine WBC < 1 /HPF (0-5)
[2024-06-11 20:14] LABS: Albumin 4.9 g/dL (3.2-4.8); Blood Urea Nitrogen 8 mg/dL (9-23); Glucose 110 mg/dL (74-106); Lipase 63 U/L (12-53); Total Protein 8.2 g/dL (5.7-8.2)
[2024-06-11 20:28] LABS: Anisocytosis Marked; Hypochromia Marked; Platelet Estimate Adequate
[2024-06-11 20:29] LABS: Large Platelets FEW; Tear Drop Cells FEW
--- NOTE | 2024-06-11 20:47 | DVH ---
Date: 06/11/2024 08:22 PM Examination: XY KUB ABDOMEN SINGLE VIEW History: Abdominal pain, eructation and fluctuance Comparison: None TECHNIQUE: Frontal views of the abdomen was obtained. FINDINGS: Bowel gas pattern is unremarkable. Large stool burden throughout the colon The lung bases are unremarkable. No acute osseous abnormality identified. IMPRESSION: 1. Nonobstructive bowel gas pattern. 2. Large stool burden throughout the colon
[2024-06-11] MEDS ORDERED: POLY335015 PO (21:45)
[2024-06-11] MEDS ORDERED: ACET650T12 PO (21:45)
[2024-06-11] MEDS: SIMETHICONE 80 MG CHEWABLE TABLET PO ONE (21:54)
[2024-06-11] MEDS: ACETAMINOPHEN 500 MG TAB or CAP PO ONE (21:55)
[2024-06-11 22:00] VITALS: BP 118/82; PULSE 92; RESP 18; TEMP 98; O2SAT 99
--- NOTE | 2024-06-12 09:20 | ECG ---
[facility] Test Date: 2024-06-08 Test Time: 05:53:50 Pat Name: NIKOLE ISAAC Department: EMERGENCY Room: Gender: F Collections Rep: YF : 1995 Requested By: ARMANDO DIAZ Order Number: [id number] Reading MD: Francisco George Measurements Intervals [place] Rate: 88 P: 48 VT: 128 QRS: 21 QRSD: 106 T: 35 QT: 371 QTc: 449 Interpretive Statements Sinus rhythm RSR' in V1 or V2, right VCD or RVH Electronically Signed On 06-13-2024 20:45:17 PDT by Francisco George Please click the below link to view image of tracing.
== END 2024-06-11 21:54 | disposition home or self-care (01) ==
LOC: ER 18:19
DX: R10.32 Left lower quadrant pain (principal); D72.829 Elevated white blood cell count, unspecified; K59.00 Constipation, unspecified
CPT/HCPCS: 36415; 74018; 80053; 81001; 81025; 83605; 83690; 84484; 85025; 93005